=== PATIENT | male | born 1950 | race Caucasian/White ===

== ENCOUNTER 2022-02-13 09:10 | Observation (INO) ==
[2022-02-13] MEDS ORDERED: Gadolinium Contrast Agent (WT Based) IV PRN (10:14)
[2022-02-13] MEDS ORDERED: Morphine Sulfate 2 MG/ML SYRINGE IVP ONE (10:16)
[2022-02-13] MEDS ORDERED: Ketorolac 30 MG/ML VIAL IVP ONE (10:16)
[2022-02-13 11:04] LABS: Basophils % 0.2 %; Eosinophils % 0.2 %; Hematocrit 34.1 % (37.5-50.1); Hemoglobin 11.2 g/dL (12.9-16.9); Immature Granulocytes % 0.2 % (0-4); Lymphocytes % 7.9 %; Mean Corpuscular HGB Conc 32.8 g/dL (31.6-35.5); Mean Corpuscular Hemoglobin 29.9 pg (28.0-33.3); Mean Corpuscular Volume 91.2 fL (83.0-100.0); Mean Platelet Volume 10.1 fL (9.4-12.4); Monocytes # 1.1 K/mcL (0.0-1.3); Monocytes % 8.8 %; Neutrophils # 10.6 K/mcL (1.6-8.9); Platelet Count 234 K/mcL (140-400); Red Blood Count 3.74 M/mcL (4.19-5.50); Red Cell Distribution Width 14.2 % (11.5-14.5); Segmented Neutrophils % 82.7 %; White Blood Count 12.9 K/mcL (4.3-11.1)
[2022-02-13] MEDS ORDERED: GADOBUTROL 30 MMOL/30 ML VIAL IVP ONE (11:05)
[2022-02-13 11:11] LABS: INR 1.2; Prothrombin Time 13.4 Seconds (9.4-12.1)
[2022-02-13 11:13] LABS: Activated Partial Thrombo Time 33.1 Seconds (26.0-36.0)
[2022-02-13 11:23] LABS: BUN/Creatinine Ratio 19 (6-26); Blood Urea Nitrogen 33 mg/dL (8-23); C-Reactive Protein 127 mg/L (Less than 10); Calcium 9.4 mg/dL (8.6-10.3); Carbon Dioxide 29 mEq/L (23-29); Chloride 98 mEq/L (98-107); Glucose 250 mg/dL (70-105); Osmolality,Calculated 298 (280-300); Potassium 3.5 mEq/L (3.5-5.1); Sodium 136 mEq/L (136-145); eGFR For African Americans 48 (> 60); eGFR For Non-African Americans 39 (> 60)
[2022-02-13 12:02] LABS: Troponin I < 0.03 ng/mL (< 0.04)
[2022-02-13] MEDS ORDERED: cefTRIAXone 2,000 MG in 0.9 % Sodium Chloride Mini Bag 100 ML IVPB ONE ×2 (13:15→14:15)
[2022-02-13] MEDS ORDERED: Vancomycin 1,500 MG/265 ML IV.SOLN IVPB ONE (13:33)
[2022-02-13] MEDS ORDERED: Ondansetron 4 MG/2 ML VIAL IVP PRN (13:56)
[2022-02-13] MEDS ORDERED: Acetaminophen 325 MG TABLET PO PRN (13:56)
[2022-02-13] MEDS ORDERED: Naloxone 0.4 MG/ML INJ IVP PRN (13:56)
[2022-02-13] MEDS ORDERED: Dextrose 4 GM Chewable Tablets PO PRN ×2 (16:00)
[2022-02-13] MEDS ORDERED: *HR* Dextrose 50 % in Water (Syg) 50 ML SYRINGE IVP PRN (16:00)
[2022-02-13] MEDS ORDERED: D5% in Water 1,000 ML IVC PRN (16:00)
[2022-02-13] MEDS: Insulin LISPRO 300 UNITS/3 ML VIAL SUBQ SCH (17:02)
[2022-02-13] MEDS: 0.9 % Sodium Chloride 1,000 ML IVC SCH (17:04)
[2022-02-13] MEDS ORDERED: Insulin LISPRO 300 UNITS/3 ML VIAL SUBQ SCH (21:00)
[2022-02-13] MEDS: *HR* OxyCODONE Immed Rel 5 MG TABLET PO PRN (21:28)
[2022-02-14] MEDS: *HR* OxyCODONE Immed Rel 5 MG TABLET PO PRN ×2 (02:49→15:01)
[2022-02-14 07:03] VITALS: BP 154/78; PULSE 74; TEMP 97.6; O2SAT 99
[2022-02-14] MEDS: Insulin LISPRO 300 UNITS/3 ML VIAL SUBQ SCH ×2 (08:33→12:36)
[2022-02-14 08:35] LABS: Basophils % 0.1 %; Eosinophils # 0.1 K/mcL (0.0-0.6); Eosinophils % 1.1 %; Hematocrit 35.4 % (37.5-50.1); Hemoglobin 11.9 g/dL (12.9-16.9); Immature Granulocytes % 0.2 % (0-4); Lymphocytes # 1.4 K/mcL (0.6-4.6); Lymphocytes % 13.2 %; Mean Corpuscular HGB Conc 33.6 g/dL (31.6-35.5); Mean Corpuscular Hemoglobin 30.7 pg (28.0-33.3); Mean Corpuscular Volume 91.2 fL (83.0-100.0); Mean Platelet Volume 10.1 fL (9.4-12.4); Monocytes # 0.7 K/mcL (0.0-1.3); Monocytes % 7.1 %; Neutrophils # 8.1 K/mcL (1.6-8.9); Platelet Count 245 K/mcL (140-400); Red Blood Count 3.88 M/mcL (4.19-5.50); Red Cell Distribution Width 13.7 % (11.5-14.5); Segmented Neutrophils % 78.3 %; White Blood Count 10.4 K/mcL (4.3-11.1)
[2022-02-14] MEDS ORDERED: amLODIPine 5 MG TABLET PO SCH (09:00)
[2022-02-14] MEDS ORDERED: cefTRIAXone 2,000 MG in 0.9 % Sodium Chloride 20 ML IVPB SCH (09:00)
[2022-02-14] MEDS ORDERED: Cholecalciferol (D-3) 1,000 UNIT (25MCG) TABLET PO SCH (09:00)
[2022-02-14 09:27] LABS: Estimated Average Glucose 169 mg/dl; Hemoglobin A1C 7.5 %
[2022-02-14 09:41] LABS: BUN/Creatinine Ratio 23 (6-26); Blood Urea Nitrogen 29 mg/dL (8-23); Calcium 9.6 mg/dL (8.6-10.3); Carbon Dioxide 28 mEq/L (23-29); Chloride 101 mEq/L (98-107); Glucose 117 mg/dL (70-105); Magnesium 1.5 mg/dL (1.6-2.6); Osmolality,Calculated 291 (280-300); Potassium 3.7 mEq/L (3.5-5.1); Sodium 137 mEq/L (136-145); eGFR For African Americans > 60 (> 60); eGFR For Non-African Americans 56 (> 60)
[2022-02-14] MEDS: 0.9 % Sodium Chloride 1,000 ML IVC SCH ×2 (10:05→12:37)
[2022-02-14] MEDS ORDERED: cefTRIAXone 2,000 MG in 0.9 % Sodium Chloride 20 ML IVP SCH (14:00)
[2022-02-14] MEDS ORDERED: Vancomycin 1,500 MG/265 ML IV.SOLN IVPB SCH (15:00)
== END 2022-02-14 15:30 | disposition home or self-care (01) ==
LOC: 4WAOSI 09:10 → EMEROOARM 09:10 → SUATTDRO 14:07 → 4WAOSI 14:49
PROVIDERS: ADMIT Internal Medicine; ATTEND Pharmacist